=== PATIENT | female | born 1990 | race Hispanic/Latino ===

== ENCOUNTER 2022-03-29 02:01 | Inpatient (IN) | payer OTHER ==
[2022-03-29 02:32] VITALS: BMI 26.2
[2022-03-29] MEDS: Lactated Ringer's 1,000 ML IV SCH ×2 (02:32→03:29)
[2022-03-29] MEDS ORDERED: Methylergonovine 0.2 MG/ML VIAL IM PRN (02:40)
[2022-03-29] MEDS ORDERED: hydrALAZINE 20 MG/ML VIAL SLOW IVP PRN ×2 (02:40→07:39)
[2022-03-29] MEDS ORDERED: Ibuprofen 800 MG TAB PO PRN (02:40)
[2022-03-29] MEDS ORDERED: Carboprost 250 MCG/ML AMP IM PRN (02:40)
[2022-03-29] MEDS ORDERED: Misoprostol 200 MCG TAB PR PRN (02:40)
[2022-03-29] MEDS ORDERED: Promethazine HCl 25 MG/ML VIAL IM PRN ×3 (02:40→07:39)
[2022-03-29] MEDS ORDERED: Ondansetron PF 4 MG/2 ML Vial IVP PRN ×3 (02:40→07:39)
[2022-03-29] MEDS ORDERED: Acetaminophen 500 MG TAB PO PRN (02:40)
[2022-03-29] MEDS ORDERED: Diphenoxylate HCl/Atropine Tablet PO PRN (02:40)
[2022-03-29] MEDS ORDERED: Lidocaine 1% (PF) 30 ML VIAL SC PRN (02:40)
[2022-03-29] MEDS ORDERED: Butorphanol Tartrate 1 MG/ML VIAL SLOW IVP PRN (02:40)
[2022-03-29] MEDS ORDERED: NS w/ Oxytocin 30 units 500 ML IV SCH (02:45)
[2022-03-29] MEDS ORDERED: Fentanyl 2 mcg/Bup 0.1% Cadd 100 ML ONE (02:49)
[2022-03-29 03:00] LABS: Hemoglobin 12.2 g/dL (12.0-15.5); Mean Corpuscular Hemoglobin 30.3 pg (27.0-33.0); Mean Corpuscular Volume 86.8 fl (81.6-98.3); Mean Platelet Volume 9.7 fl (7.4-10.4); Platelet Count 376 10x3/uL (150-450); RBC Distribution Width 14.6 % (11.5-14.5); Red Blood Cell (RBC) Count 4.02 10x6/uL (3.90-5.03); White Blood Cell (WBC) Count 22.5 10x3/uL (3.5-10.5)
[2022-03-29 03:19] LABS: Hep B Surf Ag Non-Reactive S/CO (NonReactive)
[2022-03-29 03:20] LABS: Syphilis Antibody Nonreactive (Nonreactive); Syphilis Antibody Index 0.03 S/CO (<1.00 Non-Reactive)
[2022-03-29] MEDS ORDERED: Acetaminophen 325 MG TAB PO PRN (03:32)
[2022-03-29] MEDS ORDERED: Lactated Ringer's 500 ML IV PRN (03:32)
[2022-03-29] MEDS ORDERED: diphenhydrAMINE 50 MG/ML VIAL IVP PRN (03:32)
[2022-03-29] MEDS ORDERED: Naloxone HCl 0.4 mg/ml Vial IVP PRN ×2 (03:32)
[2022-03-29] MEDS ORDERED: ePHEDrine Sulfate 50 MG/10 ML VIAL SLOW IVP PRN (03:32)
[2022-03-29] MEDS ORDERED: Moisturizing Cream (Eucerin) 113 GM JAR TOP PRN (03:32)
[2022-03-29 03:41] LABS: HBSAg Index 0.19 S/CO (0-0.99)
[2022-03-29] MEDS ORDERED: Communication Order-Pharmacy FS SCH (03:45)
[2022-03-29] MEDS ORDERED: Fentanyl 2 mcg/Bupivacaine 0.1% Cassette 100 ML EPIDURAL SCH (03:45)
[2022-03-29] MEDS ORDERED: Benzocaine-Menthol 82.5 ML CAN TOP PRN (07:39)
[2022-03-29] MEDS ORDERED: Lanolin Ointment 7 GM TUBE TOP PRN (07:39)
[2022-03-29] MEDS ORDERED: Milk Of Magnesia 30 ML UDCUP PO PRN (07:39)
[2022-03-29] MEDS ORDERED: Bisacodyl 10 MG SUPP PR PRN (07:39)
[2022-03-29] MEDS ORDERED: diphenhydrAMINE 25 MG CAP PO PRN (07:39)
[2022-03-29] MEDS: Ibuprofen 800 MG TAB PO SCH ×3 (07:46→21:22)
[2022-03-29] MEDS ORDERED: Bupivacaine/Epinephrine 0.25% 30 ML VIAL ONE (08:00)
[2022-03-29] MEDS: Docusate 100 MG CAP PO SCH ×2 (08:58→21:22)
[2022-03-29] MEDS: Prenatal Vitamin 1 TAB PO SCH (08:58)
[2022-03-29] MEDS: HYDROcodone/Acetaminophen 5/325 mg Tablet PO PRN ×4 (08:59→22:08)
[2022-03-29] MEDS: Ferrous Sulfate 325 MG TAB PO SCH ×2 (09:07→09:08)
[2022-03-29 09:44] LABS: SARS-CoV-2 NAA Rapid Test Not Detected (NotDetected)
[2022-03-30] MEDS: Ibuprofen 800 MG TAB PO SCH ×2 (05:37→13:54)
[2022-03-30] MEDS: HYDROcodone/Acetaminophen 5/325 mg Tablet PO PRN ×3 (07:26→15:54)
[2022-03-30] MEDS ORDERED: Boostrix 0.5 ML (Tdap) VIAL IM ONE (07:39)
[2022-03-30] MEDS: Ferrous Sulfate 325 MG TAB PO SCH (07:45)
[2022-03-30 08:06] VITALS: BP 127/63; TEMP 97.7
[2022-03-30] MEDS: Prenatal Vitamin 1 TAB PO SCH (08:46)
[2022-03-30] MEDS: Docusate 100 MG CAP PO SCH (08:46)
== END 2022-03-30 16:15 | disposition home or self-care (01) | DRG 807 ==
LOC: CSHLD/OP 02:01 → CSHLD 02:46 → CSHPED 08:40
PROVIDERS: ADMIT Family Medicine; ATTEND Family Medicine
PROC: 10E0XZZ Delivery of Products of Conception, External Approach (ICD-10-PCS; principal; 2022-03-29)
DX: O42.02 Full-term premature rupture of membranes, onset of labor within 24 hours of rupture (principal); Z37.0 Single live birth; Z3A.39 39 weeks gestation of pregnancy; Z20.822 Contact with and (suspected) exposure to COVID-19
CPT/HCPCS: 85027; 86780; 86850; 86900; 86901; 87340; J2590; J7120; U0002